=== PATIENT | female | born 1980 | race African-American/Black ===

== ENCOUNTER 2024-02-28 16:51 | Inpatient (IN) | payer SELFPAY ==
[~2024-02-28] VITALS: Ht 157.5 cm; Wt 145.3 kg
[2024-02-28 18:55] LABS: Basophils # (auto) 0.1 10 ^3/uL (0-0.2); Basophils % (auto) 0.7 % (0.0-2.0); Eosinophils # (auto) 0.2 10 ^3/uL (0-0.8); Eosinophils % (auto) 1.7 % (0.0-7.0); Hemoglobin 10.5 g/dL (12.2-16.2); Lymphocytes # (auto) 2.8 10 ^3/uL (0.4-5.4); Lymphocytes % (auto) 27.7 % (10.0-50.0); Mean Corpuscular Hemoglobin 23.1 pg (28.0-32.0); Mean Corpuscular Hgb Conc. 31.7 g/dL (32.0-36.0); Mean Corpuscular Volume 72.7 fL (80.0-100.0); Monocytes # (auto) 0.7 10 ^3/uL (0-1.3); Monocytes % (auto) 6.6 % (0.0-12.0); Neutrophils # (auto) 6.5 10 ^3/uL (1.6-8.6); Neutrophils % (auto) 63.3 % (37.0-80.0); Red Blood Cells 4.54 10^6/uL (4.0-5.20); Red Cell Distribution Width 15.8 % (11.8-14.3); White Blood Cell 10.3 10^3/uL (4.4-10.8)
[2024-02-28 19:07] LABS: Chloride 109 mmol/L (98-107); Potassium 3.6 mmol/L (3.5-5.1); Sodium 138 mmol/L (136-145)
[2024-02-28 19:08] LABS: Anion Gap 5 (5-15); Carbon Dioxide 24 mmol/L (20-30)
[2024-02-28 19:09] LABS: Calcium 9.8 mg/dL (8.5-10.1)
[2024-02-28 19:13] LABS: BUN/Creatinine Ratio 9.9 (10.0-20.0); Blood Urea Nitrogen 11 mg/dL (9-23); Glucose 113 mg/dL (74-106)
[2024-02-28 20:55] LABS: Erythrocyte Sedimentation Rate 49 mm/hr (0-20)
[2024-02-28] MEDS ORDERED: HYDR25TA5 PO (20:58)
[2024-02-28] MEDS ORDERED: LEVE100012 PO (20:58)
[2024-02-28] MEDS ORDERED: DOCUSATE SOD 100 MG CAP PO PRN (21:00)
[2024-02-28] MEDS ORDERED: ONDANSETRON HCL 4 MG/2 ML VIAL IV PRN (21:00)
[2024-02-28] MEDS ORDERED: DEXTROSE (50%) 50ML SYRG IV PRN (21:00)
[2024-02-29] VITALS (7 sets, daily range): BP systolic 113–130; BP diastolic 71–87; PULSE 90–109; RESP 18–21; TEMP 97.7–98.7; O2SAT 93–100
[2024-02-29] MEDS: CLINDAMYCIN 600MG IV 50 ML IV SCH (01:56)
[2024-02-29] MEDS: SODIUM CHLOR 0.9% PF (SALINE LOCK) 10ML VIAL/SYR IV SCH (01:57)
[2024-02-29] MEDS: ACCU-CHEK COMFORT CURVE STRIP VI SCH (01:57)
[2024-02-29] MEDS: levETIRAcetam 500 MG TAB PO SCH (01:57)
[2024-02-29] MEDS: InsuLIN REG 1unit/0.01ml Soln (100units/ml) SC SCH ×2 (01:57→06:37)
[2024-02-29] MEDS: SODIUM CHLORIDE 0.9% 1,000 ML IV ONE (01:57)
[2024-02-29 10:01] LABS: Eosinophils # (auto) 0.2 10 ^3/uL (0-0.8); Neutrophils # (auto) 4.3 10 ^3/uL (1.6-8.6); Red Cell Distribution Width 15.8 % (11.8-14.3); White Blood Cell 7.8 10^3/uL (4.4-10.8)
[2024-02-29 10:03] LABS: Basophils # (auto) 0.1 10 ^3/uL (0-0.2); Basophils % (auto) 0.7 % (0.0-2.0); Eosinophils % (auto) 3.1 % (0.0-7.0); Hematocrit 30.3 % (36.0-46.0); Hemoglobin 9.8 g/dL (12.2-16.2); Lymphocytes # (auto) 2.5 10 ^3/uL (0.4-5.4); Lymphocytes % (auto) 32.4 % (10.0-50.0); Mean Corpuscular Hemoglobin 23.5 pg (28.0-32.0); Mean Corpuscular Hgb Conc. 32.2 g/dL (32.0-36.0); Mean Corpuscular Volume 73.1 fL (80.0-100.0); Monocytes # (auto) 0.7 10 ^3/uL (0-1.3); Monocytes % (auto) 9.1 % (0.0-12.0); Neutrophils % (auto) 54.7 % (37.0-80.0); Red Blood Cells 4.15 10^6/uL (4.0-5.20)
[2024-02-29 10:06] LABS: Alanine Aminotransferase 36 U/L (7-40); Albumin 3.7 g/dL (3.2-4.8); Alkaline Phosphatase 81 U/L (46-116); Anion Gap 5 (5-15); Aspartate Aminotransferase 28 U/L (13-40); BUN/Creatinine Ratio 13.6 (10.0-20.0); Bilirubin, Total 0.5 mg/dL (0.2-1.0); Blood Urea Nitrogen 12 mg/dL (9-23); Calcium 9.1 mg/dL (8.5-10.1); Carbon Dioxide 25 mmol/L (20-30); Chloride 108 mmol/L (98-107); Glucose 90 mg/dL (74-106); Potassium 3.5 mmol/L (3.5-5.1); Sodium 138 mmol/L (136-145)
[2024-02-29 10:07] LABS: Total Protein 6.6 g/dL (5.7-8.2)
[2024-02-29] MEDS: hydroCHLOROthiazide 25 MG TAB PO SCH (10:49)
[2024-02-29] MEDS: ACETAMINOPHEN 325 MG TAB PO PRN (17:35)
[2024-03-01] VITALS (7 sets, daily range): BP systolic 97–121; BP diastolic 55–80; PULSE 70–103; RESP 14–22; TEMP 97.8–98.6; O2SAT 94–100
[2024-03-01] MEDS: HYDROcodone-ACET 5/325MG TAB PO PRN (09:11)
[2024-03-02] VITALS (7 sets, daily range): BP systolic 98–134; BP diastolic 52–80; PULSE 91–104; RESP 18–20; TEMP 98.1–98.5; O2SAT 95–98
[2024-03-03 01:00] VITALS: BP 112/79; PULSE 105; RESP 20; TEMP 97.9; O2SAT 98
[2024-03-03 05:00] VITALS: BP 112/71; PULSE 107; RESP 20; TEMP 99; O2SAT 95
[2024-03-03 08:35] VITALS: BP 117/78; PULSE 104; RESP 20; TEMP 98.6; O2SAT 98
[2024-03-03 12:30] VITALS: BP 116/73; PULSE 108; RESP 18; TEMP 98.9; O2SAT 98
[2024-03-03 16:25] VITALS: BP 119/81; PULSE 103; RESP 20; TEMP 98.2; O2SAT 95
[2024-03-03 21:00] VITALS: BP 114/75; PULSE 107; RESP 18; TEMP 98.4; O2SAT 99
[2024-03-03] MEDS: CLINDAMYCIN HCL 150 MG CAP PO SCH (22:18)
[2024-03-04] VITALS (7 sets, daily range): BP systolic 98–127; BP diastolic 57–82; PULSE 103–114; RESP 16–20; TEMP 97.9–98.9; O2SAT 96–98
[2024-03-05] VITALS (8 sets, daily range): BP systolic 105–126; BP diastolic 76–82; PULSE 101–106; RESP 16–20; TEMP 98.2–98.8; O2SAT 96–99
[2024-03-06 01:00] VITALS: BP 104/56; PULSE 80; RESP 19; TEMP 98.7; O2SAT 99
[2024-03-06 05:00] VITALS: BP 122/75; PULSE 102; RESP 20; TEMP 98.7; O2SAT 100
[2024-03-06 08:46] VITALS: BP 100/62; PULSE 108; RESP 20; TEMP 99.1; O2SAT 98
== END 2024-03-06 12:04 | disposition home or self-care (01) | DRG 605 ==
LOC: ER 16:51 → OVERFLOW 20:58 → WEST WING 02-29 04:15
PROVIDERS: ADMIT Nurse Practitioner Family; ATTEND Internal Medicine Geriatric Medicine
DX: S31.103A Unspecified open wound of abdominal wall, right lower quadrant without penetration into peritoneal cavity, initial encounter (principal); Z59.00 Homelessness unspecified; Z68.43 Body mass index [BMI] 50.0-59.9, adult; E11.9 Type 2 diabetes mellitus without complications; I10 Essential (primary) hypertension; B96.20 Unspecified Escherichia coli [E. coli] as the cause of diseases classified elsewhere; G40.909 Epilepsy, unspecified, not intractable, without status epilepticus; E66.01 Morbid (severe) obesity due to excess calories; Z88.0 Allergy status to penicillin; Z79.899 Other long term (current) drug therapy; X58.XXXA Exposure to other specified factors, initial encounter; Y93.89 Activity, other specified; Y92.89 Other specified places as the place of occurrence of the external cause; Y99.8 Other external cause status
CPT/HCPCS: 36415; 80048; 80053; 82962; 83036; 83605; 85025; 85652; 86141; 87077; 87081; 87186; 87205; 96360; G0378; J3490